=== PATIENT | male | born 1935 | race Caucasian/White ===

== ENCOUNTER → 2021-09-13 | Outpatient (CLI) | payer MEDICARE ==
--- NOTE | 2021-09-15 13:24 | US ---
EXAMINATION TYPE: US arterial UE single level DATE OF EXAM: 09/13/2021 COMPARISON: NONE CLINICAL HISTORY: I73.9 PERIPHERAL VASCULAR DISEASE, UNSPECIFIED. Waveforms: Amplitudes are similar in the upper extremities. No significant pressure drop identified within the l eft or right upper extremity to suggest stenosis. IMPRESSION: Essentially normal wrist brachial indices
== END | disposition home or self-care (01) ==
LOC: RADUSWWP 12:22
PROVIDERS: ATTEND Family Medicine
DX: I73.9 Peripheral vascular disease, unspecified (principal)
CPT/HCPCS: 93922